=== PATIENT | female | born 1940 | race Caucasian/White ===

== ENCOUNTER → 2017-01-20 | Outpatient (CLI) | payer OTHER, BC ==
[~2017-01-20] MED LIST: CYAN10005 PO; DILT180C53 PO
--- NOTE | 2017-01-21 12:25 | MAMMOGRAPHY REPORT ---
BILATERAL DIGITAL SCREENING MAMMOGRAM WITH CAD: 01/20/2017 CLINICAL HISTORY: Routine screening. Patient has no complaints. TECHNIQUE: Bilateral CC and MLO views were obtained. Current study was also evaluated with a Comput er Aided Detection (CAD) system. COMPARISON: Comparison is made to exams dated: 01/15/2016 mammogram, 01/11/2014 mammogram, 01/12/2015 mammogram, 01/08/2013 mammogram, 12/28/2009 mammogram - [facility], and 12/19/2008. BREAST COMPOSITION: The tissue of both breasts is heterogeneously dense, which may obscure small ma sses. FINDINGS: The parenchymal pattern is unchanged. There are a few scattered stable benign appearing rim calcifications in the breasts. No developing mass, architectural distortion or cluster of suspi cious microcalcifications is seen. IMPRESSION: ACR BI-RADS CATEGORY 2: BENIGN There is no mammographic evidence of malignancy. A 1 year screening mammogram is recommended. The p atient will receive written notification of the results. Approximately 10% of breast cancers are not detected with mammography. A negative mammographic repor t should not delay biopsy if a clinically suggestive mass is present. Heather Reyna M.D. ay/:01/20/2017 15:32:50 Control Supervisor: Angella MARQUES(R)(M), [facility] letter sent: Normal 1/2 BI-RADS Code: ACR BI-RADS Category 2: Benign
== END | disposition home or self-care (01) ==
LOC: C.MAMM 07:24
PROVIDERS: ATTEND Family Medicine
DX: Z12.31 Encounter for screening mammogram for malignant neoplasm of breast (principal)

== ENCOUNTER → 2018-01-21 | Outpatient (CLI) | payer OTHER, BC ==
--- NOTE | 2018-01-21 15:56 | MAMMOGRAPHY REPORT ---
BILATERAL DIGITAL SCREENING MAMMOGRAM TOMOSYNTHESIS WITH CAD: 01/21/2018 CLINICAL HISTORY: Routine screening. Patient has no complaints. TECHNIQUE: Breast tomosynthesis in addition to standard 2D mammography was performed. Current study was also evaluated with a Computer Aided Detection (CAD) system. COMPARISON: Comparison is made to exams dated: 01/20/2017 mammogram, 01/15/2016 mammogram, 01/12/2015 m ammogram, and 01/11/2014 mammogram - [facility]. BREAST COMPOSITION: The tissue of both breasts is heterogeneously dense, which may obscure small mas ses. FINDINGS: There are stable asymmetries in each breast along the posterior nipple line on the cc view s, and scattered benign-appearing punctate microcalcifications. No new suspicious mass, architectural distortion or cluster of microcalcifications is seen. IMPRESSION: ACR BI-RADS CATEGORY 2: BENIGN There is no mammographic evidence of malignancy. A 1 year screening mammogram is recommended. The pa tient will receive written notification of the results. Approximately 10% of breast cancers are not detected with mammography. A negative mammographic report should not delay biopsy if a clinically suggestive mass is present. Heather Reyna M.D. ay/:01/21/2018 08:42:12 Newspaper Correspondent: Angella MARQUES(R)(M), [facility] letter sent: Normal 1/2 BI-RADS Code: ACR BI-RADS Category 2: Benign
== END | disposition home or self-care (01) ==
LOC: C.MAMM 08:01
PROVIDERS: ATTEND Family Medicine
DX: Z12.31 Encounter for screening mammogram for malignant neoplasm of breast (principal)

== ENCOUNTER 2018-03-29 14:19 | Emergency (ER) | payer BC, OTHER ==
[~2018-03-29] VITALS: Ht 160 cm; Wt 66.1 kg
[2018-03-29 14:29] VITALS: Ht 160 cm; Wt 66.1 kg
--- NOTE | 2018-03-29 14:55 | EMERGENCY ROOM VISIT NOTE ---
ED Visit Note First contact with patient: 14:41 I did evaluate and examine this patient myself. I did guide management for the patient. I agree with the PA's assessment as discussed. Please see the PAs dictation for further details. I did independently review the CT scan. The patient is neurologically intact. GCS is 15. Head CT did not show any acute abnormality. She was discharged with head injury precautions. She denies any other symptoms.
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
[2018-03-29 15:47] VITALS: BP 178/84; PULSE 90; TEMP 36.4; O2SAT 95
== END 2018-03-29 15:30 | disposition home or self-care (01) ==
LOC: C.EDB 14:20 → C.EDD 15:30
DX: S00.83XA Contusion of other part of head, initial encounter (principal); V87.7XXA Person injured in collision between other specified motor vehicles (traffic), initial encounter; D64.9 Anemia, unspecified; K21.9 Gastro-esophageal reflux disease without esophagitis; I10 Essential (primary) hypertension; Z79.899 Other long term (current) drug therapy

== ENCOUNTER → 2018-03-30 | Outpatient (CLI) | payer OTHER, BC | END | disposition home or self-care (01) | LOC: C.RDSM 12:53 | PROVIDERS: ATTEND Orthopaedic Surgery | DX: R52 Pain, unspecified (principal) ==

== ENCOUNTER 2022-11-12 05:03 | Observation (INO) ==
--- NOTE | 2022-10-16 15:41 | PAT Medication Instructions ---
Medication Instructions Date of Service October 16, 2022 Home Medications calcium-vitamin D3-vitamin K 500 mg-100 unit-40 mcg chewable tablet 1 tab PO QAM cyanocobalamin (vitamin B-12) 1,000 mcg tablet (Vitamin B-12) 1,000 mcg PO QAM diltiazem HCl 180 mg capsule,24 hr,extended release 180 mg PO QAM omeprazole magnesium 20 mg tablet,delayed release (Prilosec OTC) 20 mg PO DAILY PRN duloxetine 20 mg capsule,delayed release (Cymbalta) 20 mg PO QAM meloxicam 7.5 mg tablet 7.5 mg PO QAM ASK your surgeon for instructions meloxicam 7.5 mg tablet 7.5 mg PO QAM DO NOT take the morning of surgery calcium-vitamin D3-vitamin K 500 mg-100 unit-40 mcg chewable tablet 1 tab PO QAM cyanocobalamin (vitamin B-12) 1,000 mcg tablet (Vitamin B-12) 1,000 mcg PO QAM Take morning of surgery With a small sip of water, OTHERWISE NOTHING TO EAT OR DRINK AFTER MIDNIGHT: diltiazem HCl 180 mg capsule,24 hr,extended release 180 mg PO QAM omeprazole magnesium 20 mg tablet,delayed release (Prilosec OTC) 20 mg PO DAILY PRN(if needed) duloxetine 20 mg capsule,delayed release (Cymbalta) 20 mg PO QAM Other Notes If you have any questions please call us at [phone] or [phone] or [phone] or [phone]
--- NOTE | 2022-10-24 09:44 | Anesthesiology Consultation ---
Date of Service October 24, 2022 Assessment & Plan (1) Encounter for pre-operative examination: - PCP pre-op evaluation 10/28/22. PAT testing to be faxed to PCP office including abnormal CXR. Outpatient joint assessment: Patient is currently scheduled for inpatient pathway. If re-evaluated pending system levels during current pandemic/surgeon requests outpatient pathway, patient is not acceptable candidate for outpatient joint program from anesthesia standpoint. Chart Review Chart Review: Pending: Refer to Additional Notes / Consult section and Patient seen in Pre Admission Testing Teaching & Discussion Pre-Anesthesia Teaching/Discussion Notes: Instructed NPO after midnight before surgery, except medications with 15 cc of water. Medication instructions provided according to the PAT guidelines. History Surgery Operation Date: 11/12/22 07:00 Proposed Procedures p Right Total Knee Arthroplasty - Wan Tariq MD Height/Weight Height: 5 ft 3 in Weight: 63.8 kg Allergies Allergy/AdvReac Type Severity Reaction Status Date / Time Sulfa (Sulfonamide AdvReac Unknown Nausea Verified 10/16/22 14:33 Antibiotics) Medications Home Medications Medication Instructions Recorded Confirmed Last Taken calcium-vitamin D3-vitamin K 500 1 tab PO QAM 03/30/21 10/16/22 03/29/21 mg-100 unit-40 mcg chewable tablet cyanocobalamin (vitamin B-12) 1,000 mcg PO QAM 03/30/21 10/16/22 04/02/21 1,000 mcg tablet (Vitamin B-12) diltiazem HCl 180 mg capsule,24 180 mg PO QAM 03/30/21 10/16/22 04/02/21 hr,extended release omeprazole magnesium 20 mg 20 mg PO DAILY PRN gerd 03/30/21 10/16/22 Unknown tablet,delayed release (Prilosec OTC) duloxetine 20 mg capsule,delayed 20 mg PO QAM 10/16/22 10/16/22 Unknown release (Cymbalta) meloxicam 7.5 mg tablet 7.5 mg PO QAM 10/16/22 10/16/22 Unknown Past Medical History Medical History (Updated 10/24/22 @ 09:59 by Jahaira Stephens PA-C) Chronic back pain GERD (gastroesophageal reflux disease) controlled, stable per pt HTN (hypertension) controlled, stable per pt; white coat hypertension Patient denies h/o stroke, seizures, heart attack, heart failure, DM, blood clots or blood transfusions. Exercise / Class Metabolic Activity II 4-5 Yardwork/Stairs/Walk up hill (denies CP or SOB with 1 FOS) Past Family History Family History Other No family history of adverse response to anesthesia Past Surgical History Surgical History (Updated 10/24/22 @ 10:00 by Jahaira Stephens PA-C) H/O eye surgery R eye History of appendectomy History of cataract surgery History of colonoscopy History of tooth extraction History of tubal ligation Past Anesthesia History No Hx of Anesthesia Complications and No Family Hx of Anesthesia Complications History of PONV No Hx of PONV and No Hx of Motion Sickness Social History Smoking Status: Never smoker Do You Dip or Chew Tobacco: No Hx Alcohol Use: No Hx Substance Use: No substance use type: does not use Review of Systems Patient denies chest pain, shortness of breath, dyspnea on exertion, snoring, witnessed apneas, fever, chills, cough, wheezing, or palpitations. Physical Exam Vital Signs Vitals BP 162/94 P 70 TEMP 98.3 SP02 96% on RA RESP 18 Physical Full cervical extension range of motion without pain TMD 3.5 finger breadths Mallampati Score 2 Dentition: edentulous, full upper and lower dentures Lungs: normal respiratory effort. Clear throughout to auscultation, no adventitious breath sounds Cardiac: regular rate and rhythm, no murmurs noted Carotid arteries: negative bruit bilat Lab Results Anesthesia Preop Results Results Anesthesia Widget: WBC 6.32 K/ul (4.8-10.8) 10/24/22 Hgb 12.7 g/dl (12.0-16.0) 10/24/22 Hct 38.9 % (34.1-44.9) 10/24/22 Plt 232 K/uL (130-400) 10/24/22 Na 141 mmol/L (136-145) 10/24/22 K 4.2 mmol/L (3.5-5.1) 10/24/22 Cl 108 mmol/L (98-107) H 10/24/22 CO2 26 mmol/L (21-32) 10/24/22 BUN 19 mg/dl (6-23) 10/24/22 Creat 0.79 mg/dl (0.6-1.2) 10/24/22 Glucose Level 89 mg/dl (70-99(Fasting)) 10/24/22 PT 10.9 Seconds (9.0-12.0) 10/24/22 PTT 27.9 Seconds (21.0-31.0) 10/24/22 INR 1.0 (0.9-1.1) 10/24/22 Blood Type O Positive 10/24/22 Antibody Screen NEGATIVE 10/24/22 Testing Electrocardiogram Date: 10/24/22 NSR, rate 70 bpm Minimal voltage criteria for LVH, may be normal variant Nonspecific T wave abnormality Chest X-Ray Date: 10/24/22 Lung volumes are normal. Lungs are clear. There is no pneumothorax or pleural effusion. Cardiac size is normal. There is tortuosity and suspected dilatation of the descending thoracic aorta, measuring approximately 4.5 cm in caliber. There is no evidence for pulmonary edema. IMPRESSION: 1. No acute cardiopulmonary findings. 2. 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 COVID-19 Risk Screen Screening Information COVID-19 Screen Date: 10/24/22 Exposure 21 Days Family/Household +COVID Last 21 Days: No Exposure 10 Days Any COVID Exposure Last 10 Days: No Symptoms Last 10 Days Experienced COVID Sx Last 10 Days: No + COVID 0-90 Days COVID + in Last 0-90 Days: No
[2022-11-12] MEDS ORDERED: TRANEXAMIC ACID 1,000 MG **IV Intra-op IV SCH (06:00)
[2022-11-12] MEDS ORDERED: Scopolamine 1 MG TDSY TD SCH (06:00)
[2022-11-12] MEDS ORDERED: LR 60ML/HR IV SCH (06:00)
[2022-11-12] MEDS ORDERED: ACETAMINOPHEN 500 MG TAB PO SCH (06:00)
[2022-11-12] MEDS ORDERED: TRANEXAMIC ACID 1,000 MG **IV Pre-op IV SCH (06:00)
[2022-11-12] MEDS ORDERED: LR 500ML BOLUS, THEN 15ML/HR IV SCH (06:00)
[2022-11-12] MEDS ORDERED: CeleBREX 200 MG CAP PO SCH (06:00)
[2022-11-12] MEDS ORDERED: ceFAZolin 2000MG 2,000 MG/15 ML SYR IV SCH (06:00)
[2022-11-12] MEDS ORDERED: ROPIVACAINE 0.5% HCL/PF 150 MG, BUPIVACAINE 0.75% MPF 20 ML, EPINEPHrine 30MG/30ML (OR ... INSTIL SCH (06:00)
[2022-11-12] MEDS ORDERED: BUPIVACAINE 0.5 % 5 MG/1 ML PF 10ML VIAL ONE (06:32)
[2022-11-12] MEDS ORDERED: ROPIVACAINE 0.5% 5 MG/ML 30 ML VIAL ONE (06:32)
[2022-11-12] MEDS ORDERED: ATROPINE SULFATE 0.1 MG/ML 10ML SYR IV PRN (06:40)
[2022-11-12] MEDS ORDERED: ePHEDrine sulfate 50 MG/ML AMP IV PRN (06:40)
[2022-11-12] MEDS ORDERED: MIDAZOLAM HCL 1 MG/ML 2ML VIAL ONE (06:40)
[2022-11-12] MEDS ORDERED: ONDANSETRON INJ 2 MG/ML 2 ML VIAL IV PRN ×2 (06:40→12:13)
--- NOTE | 2022-11-12 06:40 | History & Physical Bridge Note ---
Date of Service November 12, 2022 History & Physical Bridge Note I have examined the patient, reviewed the History & Physical and in the interval since the performance of the History & Physical I have noted the following changes of clinical significance: no changes noted Patient is aware of the risks, is asymptomatic for COVID-19, testing is still pending.
[2022-11-12] MEDS ORDERED: LIDOCAINE 2% 2 ML VIAL/AMP(20MG/ML) INFIL ONE (06:41)
[2022-11-12] MEDS ORDERED: PROPOFOL IV EMULSION 10 MG/ML 20 ML VIAL IV ONE ×5 (06:41→07:24)
[2022-11-12] MEDS ORDERED: BUPIVACAINE 0.25% 30 ML VIAL ONE (06:58)
[2022-11-12] MEDS ORDERED: ONDANSETRON INJ 2 MG/ML 2 ML VIAL ONE (07:24)
--- NOTE | 2022-11-12 09:13 | Post Operative Brief Note ---
Immediate Post Op Note v1 Date of Surgery November 12, 2022 Pre & Post Diagnosis Operation Date: 11/12/22 07:00 Pre-Op Diagnosis: Right Knee Osteoarthritis Post-Op Diagnosis: Right Knee Osteoarthritis I identified the patient and participated in the time-out.: Yes Procedure Operation Date: 11/12/22 07:00 Actual Procedures p Right Total Knee Arthroplasty, Cemented(Right) - Wan Tariq MD Surgeon Wan Tariq MD Math Instructor Blanca Lane PA-C (No fellow avail) Estimated Blood Loss 75 Findings Consistent with Post-Op Diagnosis Fluids 1800 cc Specimens Right knee contents Anesthesia Type MAC Spinal Regional Complications none
--- NOTE | 2022-11-12 09:14 | Operative Report ---
Post Operative Report Pre & Post Diagnosis Operation Date: 11/12/22 07:00 Pre-Op Diagnosis: Right Knee Osteoarthritis Post-Op Diagnosis: Right Knee Osteoarthritis I identified the patient and participated in the time-out.: Yes Procedure Operation Date: 11/12/22 07:00 Actual Procedures p Right Total knee replacement, imageless computer assisted navigation - Wan Tariq MD Surgeon Wan Tariq MD Drop Clipper Blanca Lane PA-C (No fellow avail) Estimated Blood Loss 75 Findings See Below Examined Under Anesthesia: ROM -- There was 5 degrees to 90 degrees of flexion Ligamentous examination -- revealed stable Yudelka, posterior drawer, varus and valgus stress at 0 and 30 degrees. [place] Type IV changes of Tri-compartments. Fluids 1800 cc Specimens Right knee contents Anesthesia Type MAC Spinal Regional Complications none Indications This is a 82-year-old female who has clinical and radiographic findings consistent with osteoarthritis of the a right knee. I recommended that a right total knee replacement be performed. The patient understands the risks of surgery, which include but not limited to: bleeding, infection, re-operation, damage to nerves and arteries, continued knee pain, knee stiffness, DVT, and . The patient understands all of these instructions and explanations, all of his questions have been satisfactorily addressed and the patient has elected to proceed. Informed consent was signed. Description of Procedure IMPLANTS: 1. Femur: Triathlon #3 Right PS with distal pegs. 2. Tibia: Triathlon #3 [place]. 3. Insert: Triathlon #3 x 9 mm PS X3 poly. 4. Patella: Triathlon A29 x 9 mm X3 poly. 5. Palacos cement. Blanca Lane PA-C is assisting with positioning, retracting, and closure due to fellow not available. Procedure: The patient was taken to the Operating Room and placed in the supine position after spinal and adductor canal nerve block was administered. My initials and a multidisciplinary time-out were used to identify the right leg as the correct operative limb. A tourniquet was placed high in the thigh. Prior to the incision, 2 grams of intravenous Ancef were given. The right leg was then prepped and draped in a standard sterile fashion. An Esmarch was used to exsanguinate the leg and the tourniquet was inflated to 250 mmHg. The planned mid-line 20 cm incision was created exposing the extensor mechanism. The medial parapatellar arthrotomy was made and the patella was everted. The patella was addressed first. It was prepared by reaming from 20 mm down to 11 mm. An A29 button was found to fit best. The peg holes were made in the standard fashion. The femur was addressed next and using computer assisted OrthoAlign with 3 degrees of flexion and 0 degrees of valgus, removing 10 mm in the standard fashion for the distal cut.The cut was made and the 4-in-1 cutting block for a size 3 femur was placed. These cuts and the cuts to place the box were made in the standard fashion. The distal peg were created after testing knee stability with trial components in and using the trial femur as a guide in the standard fashion. Our attention was then drawn to the tibia cut with using imageless computer assisted OrthoAlign, taking 2 mm from the medial low side. A #3 Tibial baseplate fit well. A trial with a 9 mm spacer showed excellent stability in both flexion and extension, with good ligament balance, and thumbs free patellar tracking. Range of motion of 0-120 degrees. The tibial baseplate was prepped for the keel and stem. All components were removed.All surfaces were copiously irrigated prior to placement of the components. The femoral component followed by Tibial baseplate were cemented in place and the 9 mm X3 poly was placed. Next, the patellar button was placed using the same cement. Once the cement had cured, the range of motion and stability were unchanged. The tourniquet was deflated. Hemostasi s was obtained. 90 ml of total knee cocktail were injected into the soft tissues and periosteum. The extensor mechanism was closed with 1-0 Vicryl and 0 Stratafix with the knee bent approximately 60 degrees in a standard fashion. The peritenon and deep fascia was closed with 2-0 Vicryl. The subcutaneous layer was closed with 3-0 Vicryl. The skin was closed with Zipline and shield. The limb was cleaned and dried. 4x4 dressing was placed over top followed by ABDs, sterile Webril, and a foot to thigh Hollis bandage. The patient was then transferred to the Recovery Room in stable condition. The sponge and needle counts were correct. POST-OP INSTRUCTIONS: The patient will be WBAT. The patient will be admitted to the hospital. Labs will be obtained during the stay. DVT prophylaxis will included aspirin for 6 weeks, TEDs, and mechanical foot pumps. The dressing will be changed prior to their discharge or postop day #2 and covered with a Silverlon dressing, w hichever comes first as long as the incision as dry. I attest to the content of the Intraoperative Record and any orders documented therein. Any exceptions are noted below.
--- NOTE | 2022-11-12 09:24 | Operative Report ---
Post Operative Report Pre & Post Diagnosis Operation Date: 11/12/22 07:00 Pre-Op Diagnosis: Right Knee Osteoarthritis Post-Op Diagnosis: Right Knee Osteoarthritis I identified the patient and participated in the time-out.: Yes Procedure Operation Date: 11/12/22 07:00 Actual Procedures p Right Total Knee Arthroplasty, Cemented(Right) - Wan Tariq MD Surgeon Wan Tariq M.D. Ribbon Hand Blanca Lane PA-C (No fellow avail) Estimated Blood Loss 75 Findings Consistent with Post-Op Diagnosis DJD right knee Specimens bone and soft tissue Anesthesia Type MAC Spinal Regional Description of Procedure Patient was taken to the operating room, placed under IV sedation with spinal anesthesia and peripheral nerve block. Time out performed, prepped and draped in routine sterile fashion. I was present during the entire case and assisted with positioning, tissue retraction, trialing of implants, cementing of implants, closure and dressings. Please see Dr. Tariq's operative report for further details. Patient was awakened and taken to the recovery room in stable condition. I attest to the content of the Intraoperative Record and any orders documented therein. Any exceptions are noted below.
[2022-11-12] MEDS: fentaNYL citrate 100 MCG/2 ML VIAL IV PRN ×2 (11:07→11:29)
--- NOTE | 2022-11-12 11:22 | XRay Report ---
XR knee RT 1 or 2V routine CLINICAL HISTORY: Postoperative evaluation. COMPARISON: Knee radiographs November 08, 2021. FINDINGS: Alignment of the total right knee arthroplasty is anatomic. There is no periprosthetic fra cture or unexpected radiopaque foreign body. IMPRESSION: Expected findings following total right knee arthroplasty. ACT 112: Negative or not required by law. Electronically signed by: Wero Laird M.D. 11/12/2022 11:21 AM
[2022-11-12] MEDS ORDERED: NALOXONE HCL 0.4 MG/1 ML VIAL/CARP IV PRN (12:13)
[2022-11-12] MEDS ORDERED: bisacodyL 10 MG SUPP PR PRN (12:13)
[2022-11-12] MEDS ORDERED: MAGNESIUM HYDROXIDE SUSP 30 ML UDC PO PRN (12:13)
[2022-11-12] MEDS ORDERED: HYDROmorphone INJ 0.5 MG/0.5 ML SYR IV PRN (12:13)
[2022-11-12] MEDS ORDERED: HYDROmorphone INJ 1 MG/ML SYRINGE IV PRN (12:13)
[2022-11-12] MEDS ORDERED: PANTOprazole 40 MG TAB PO PRN (12:17)
[2022-11-12] MEDS: SODIUM CHLORIDE 0.9% 1000ML 1,000 ML IV SCH ×2 (13:51→23:23)
--- NOTE | 2022-11-12 14:12 | Hospitalist Consultation ---
Date of Consultation November 12, 2022 Assessment & Plan (1) Left knee injury: - s/p right TKA, POD #0, EBL 75 cc. - Pain/ABX/IVF/diet/drain management/transfusion needs/activity per primary team - Rescue Narcan ordered for over sedation PRN - VTE prophylaxis per primary service- SCDs in place - CBC and BMP in AM. 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 - Pre-op EKG with ST depressions V3-V6, echo 11/08/22: EF 75%, hyperdynamic LV, no wma, mild LVH, grade 1 diastolic dysfunction (2) HTN (hypertension): - Continue diltiazem. (3) Esophageal reflux: - Takes Prilosec prn, Protonix ordered prn. - No history of PUD, GI bleeds. (4) Sciatica: - Continue Cymbalta. Patient notes she has developed a tremor in b/l upper extremities since starting this. (5) Mild ascending aorta dilatation: Supervising Physician Co-Signing Physician Notes I personally saw and examined the patient. I verified all stewart points and agree with Melanie Siegel PA-C with the following exceptions and/or additions: 82-year-old female POD#0 right total knee replacement. Reports excessive eructation. Uses omeprazole relatively frequently at home but only prescribed PRN. O/E A&Ox3, HS1+2, no murmurs, Chest CTAB, Abdo SNT A/P s/p TKA - pain, VTE, bowel regimen per orthopedics GERD - will start routine pantoprazole while here HTN - Took diltiazem this morning. Continue tomorrow in AM with hold parameters. History of Present Illness Reason for Consultation: post-op medical management Requesting Physician: Wan Tariq MD Attending Physician: Wan Tariq MD History of Present Illness Odalys Frausto is an 82-year-old female with past medical history of hypertension, GERD, and depression who was admitted today, 11/12 for right TKA with Dr. Tariq after failing outpatient, conservative management. Hospitalist group was consulted for post-operative medication management. Today, she is POD#0 and feels well. Denies fever/chills, weakness, chest pain, palpitations, shortness of breath, cough, orthopnea, abdominal pain, nausea, vomiting. She is regaining sensation in his left leg, without any numbness or tingling. Sitting up in her chair, visiting with . No complaints. Allergies Allergy/AdvReac Type Severity Reaction Status Date / Time Sulfa (Sulfonamide AdvReac Intermediate Nausea Verified 11/12/22 05:33 Antibiotics) Home Medications Medication Instructions Recorded Confirmed Type calcium-vitamin D3-vitamin K 500 1 tab PO QAM 03/30/21 11/12/22 History mg-100 unit-40 mcg chewable tablet cyanocobalamin (vitamin B-12) 1,000 mcg PO QAM 03/30/21 11/12/22 History 1,000 mcg tablet (Vitamin B-12) omeprazole magnesium 20 mg 20 mg PO DAILY PRN gerd 03/30/21 11/12/22 History tablet,delayed release (Prilosec OTC) duloxetine 20 mg capsule,delayed 20 mg PO QAM 10/16/22 11/12/22 History release (Cymbalta) meloxicam 7.5 mg tablet 7.5 mg PO QAM 10/16/22 11/12/22 History diltiazem HCl 360 mg capsule,24 360 mg PO DAILY 11/13/22 11/13/22 History hr,extended release Patient History Medical History (Updated 11/13/22 @ 17:00 by Julio Avila MD) Chronic back pain HTN (hypertension) controlled, stable per pt; white coat hypertension Osteoarthritis of right knee Surgical History H/O eye surgery R eye History of appendectomy History of cataract surgery History of colonoscopy History of tooth extraction History of tubal ligation Family History Other No family history of adverse response to anesthesia Social History Smoking Status: Never smoker Second Hand Exposure: No; Do You Dip or Chew Tobacco: No; Tobacco Cessation Education Requested by Patient: No Hx Alcohol Use: No Hx Substance Use: No Preferred Language: British Communication Ability: Effective 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 Required: No Beliefs That Will Affect Care: None Current Living Situation: Spouse Other Information That Helps Us Care for You: No Feels Safe at Home: Yes Safety Concerns: Feels Safe At This Time Assistive Devices: Denture - Upper, Denture - Lower and Glasses Review of Systems Review of Systems: Constitutional: No fever/chills, weakness, fatigue, myalgias, anorexia, night sweats Eyes: No diplopia, no worsening or blurred vision ENT: normal hearing, no trouble swallowing Respiratory: No cough, sputum, dyspnea at rest or on exertion Cardiovascular: No chest pain, tightness or palpitations Abdomen: No pain, nausea, vomiting, diarrhea or constipation : Denies dysuria, hematuria, increased urgency/frequency, urinary retention Musculoskeletal: No joint pain, calf pain, swelling Neurologic: No weakness, numbness/tingling, or balance problems Psychiatric: No anxiety or depression Skin: No rash or itch Physical Exam Physical Exam: General: awake, alert, no apparent distress Head: Normocephalic, atraumatic ENT: PERRL, EOMI, no pharyngeal exudate, mucous membranes moist Chest: Clear to auscultation, on room air, no adventitious breath sounds Cardiac: Regular rate and rhythm, no murmur, no JVD, normal peripheral pulses, good capillary refill Abdominal: NABS x 4 quadrants, soft, nontender to palpation, no rebound, guarding or tenderness Extremities: Normal inspection, no peripheral edema or erythema, calfs nontender to palpation Psych: Normal mood and affect Neuro: AAO x 3, strength intact bilaterally and rated 5/5, no motor deficits, speech is clear, no peripheral sensory deficits Skin: no rash or erythema Results & Data Results & Data ([facility]) Vital Signs (Past 12 Hours) Vital Signs Temp Pulse Pulse Resp BP Pulse Ox O2 Del Method 11/12/22 13:20 36.8 C 78 16 154/67 H 95 Room Air 11/12/22 13:00 78 19 140/63 94 Room Air 11/12/22 12:00 66 20 140/65 94 Room Air 11/12/22 11:30 62 12 136/56 L 93 Room Air 11/12/22 11:00 56 L 21 127/65 98 Room Air 11/12/22 10:30 36.4 C L 50 L 11 L 129/55 L 98 Room Air 11/12/22 10:15 36.4 C L 51 L 13 123/57 L 97 Room Air 11/12/22 09:40 61 16 129/61 94 Room Air 11/12/22 10:00 36.4 C L 58 L 16 119/54 L 96 Room Air 11/12/22 09:50 36.4 C L 52 L 18 126/52 L 98 Room Air 11/12/22 09:30 65 19 112/56 L 100 Oxymask 11/12/22 09:24 36.3 C L 61 12 121/63 99 Oxymask 11/12/22 05:36 36.8 C 107 H 20 180/92 H 98 Room Air O2 Flow Rate 11/12/22 13:20 11/12/22 13:00 0 11/12/22 12:00 0 11/12/22 11:30 0 11/12/22 11:00 0 11/12/22 10:30 0 11/12/22 10:15 0 11/12/22 09:40 0 11/12/22 10:00 0 11/12/22 09:50 0 11/12/22 09:30 3 11/12/22 09:24 5 11/12/22 05:36 Diagnostic Findings Knee X-Ray 11/12/22 09:29 XR knee RT 1 or 2V routine CLINICAL HISTORY: Postoperative evaluation. COMPARISON: Knee radiographs November 08, 2021. FINDINGS: Alignment of the total right knee arthroplasty is anatomic. There is no periprosthetic fracture or unexpected radiopaque foreign body. IMPRESSION: Expected findings following total right knee arthroplasty. ACT 112: Negative or not required by law. Electronically signed by: Wero Laird M.D. 11/12/2022 11:21 AM PG Care Time/CCT Total # of Minutes Spent Total Time Spent with Patient: Total time spent is greater than 50% in coordination of care (as documented) at patient's floor/unit and/or counseling patient: Coding Level of Care Code 89267 Office/OBS Consult Lvl 3 Diagnoses Left knee injury S89.92XA HTN (hypertension) I10 Esophageal reflux K21.9 Sciatica M54.30 Mild ascending aorta dilatation I77.810
--- NOTE | 2022-11-12 14:23 | Anesthesiology Progress Note ---
Date of Service November 12, 2022 Anesthesia Post Procedure Vital Signs Vital Signs: Temp Pulse Pulse Resp BP Pulse Ox O2 Del Method 11/12/22 13:20 36.8 C 78 16 154/67 H 95 Room Air 11/12/22 13:00 78 19 140/63 94 Room Air 11/12/22 12:00 66 20 140/65 94 Room Air 11/12/22 11:30 62 12 136/56 L 93 Room Air 11/12/22 11:00 56 L 21 127/65 98 Room Air 11/12/22 10:30 36.4 C L 50 L 11 L 129/55 L 98 Room Air 11/12/22 10:15 36.4 C L 51 L 13 123/57 L 97 Room Air 11/12/22 09:40 61 16 129/61 94 Room Air 11/12/22 10:00 36.4 C L 58 L 16 119/54 L 96 Room Air 11/12/22 09:50 36.4 C L 52 L 18 126/52 L 98 Room Air 11/12/22 09:30 65 19 112/56 L 100 Oxymask 11/12/22 09:24 36.3 C L 61 12 121/63 99 Oxymask 11/12/22 05:36 36.8 C 107 H 20 180/92 H 98 Room Air O2 Flow Rate 11/12/22 13:20 11/12/22 13:00 0 11/12/22 12:00 0 11/12/22 11:30 0 11/12/22 11:00 0 11/12/22 10:30 0 11/12/22 10:15 0 11/12/22 09:40 0 11/12/22 10:00 0 11/12/22 09:50 0 11/12/22 09:30 3 11/12/22 09:24 5 11/12/22 05:36 Pain Intensity Right Knee: Pain Intensity: 4 Transfer of Care Handoff Completed per policy Notes Mental Status: alert / awake / arousable and participated in evaluation Patient Amnestic to Procedure: Yes Nausea / Vomiting: adequately controlled Pain: adequately controlled Airway Patency, RR, SpO2: stable & adequate BP & HR: stable & adequate Hydration State: stable & adequate Neuraxial Anesthesia: was administered and sensory block is resolving Anesthetic Complications: no major complications apparent and Pt Satisfied with anesthetic care
[2022-11-12] MEDS: ACETAMINOPHEN 500 MG TAB PO SCH ×2 (15:41→21:25)
[2022-11-12] MEDS: ceFAZolin 1000MG 1,000 MG/7.5 ML SYR IV SCH ×2 (17:07→22:54)
[2022-11-12] MEDS: ASCORBIC ACID 500 MG TAB PO SCH (17:08)
[2022-11-12] MEDS: FERROUS GLUCONATE 324 MG TAB PO SCH (17:08)
[2022-11-12] MEDS: Scopolamine CHECK PATCH PLACEMENT SCH (17:11)
--- NOTE | 2022-11-12 17:33 | Orthopedic Progress Note ---
Date of Service November 12, 2022 Assessment & Plan (1) Osteoarthritis of right knee: Plan: POD #0 s/p R TKA, doing as well as expected. Resume diet. WBAT with walker. OOB to chair. Continue pain control. Check labs tomorrow. DVT prophylaxis: TEDs 3 weeks, foot pumps while in hospital, ASA 81 mg BID for 6 weeks. PT/OT. D/C planning. Present on Admission?: Yes Admission and Anticipated Discharge Date Admission Date: November 12, 2022 Subjective Doing well. Thankful for her new knee. Physical Exam Physical Exam: RLE: BCR < 2 sec. Sensation to light touch intact distally. Wiggling ankle and toes. Calf soft and non-tender. Dressing is clean, dry, intact. Able to preform straight leg raise. Sitting comfortably in a chair. Results & Data ([facility]) Vital Signs (Past 12 Hours) Vital Signs Temp Pulse Pulse Resp BP Pulse Ox O2 Del Method 11/12/22 15:23 36.5 C 73 16 156/71 H 97 Room Air 11/12/22 13:20 36.8 C 78 16 154/67 H 95 Room Air 11/12/22 13:00 78 19 140/63 94 Room Air 11/12/22 12:00 66 20 140/65 94 Room Air 11/12/22 11:30 62 12 136/56 L 93 Room Air 11/12/22 11:00 56 L 21 127/65 98 Room Air 11/12/22 10:30 36.4 C L 50 L 11 L 129/55 L 98 Room Air 11/12/22 10:15 36.4 C L 51 L 13 123/57 L 97 Room Air 11/12/22 09:40 61 16 129/61 94 Room Air 11/12/22 10:00 36.4 C L 58 L 16 119/54 L 96 Room Air 11/12/22 09:50 36.4 C L 52 L 18 126/52 L 98 Room Air 11/12/22 09:30 65 19 112/56 L 100 Oxymask 11/12/22 09:24 36.3 C L 61 12 121/63 99 Oxymask 11/12/22 05:36 36.8 C 107 H 20 180/92 H 98 Room Air O2 Flow Rate 11/12/22 15:23 11/12/22 13:20 11/12/22 13:00 0 11/12/22 12:00 0 11/12/22 11:30 0 11/12/22 11:00 0 11/12/22 10:30 0 11/12/22 10:15 0 11/12/22 09:40 0 11/12/22 10:00 0 11/12/22 09:50 0 11/12/22 09:30 3 11/12/22 09:24 5 11/12/22 05:36 Laboratory Results Laboratory Results SARS-CoV-2, RNA, NAAT NEGATIVE (NEGATIVE) 11/12/22 Unknown Impressions Knee X-Ray 11/12/22 09:29 XR knee RT 1 or 2V routine CLINICAL HISTORY: Postoperative evaluation. COMPARISON: Knee radiographs November 08, 2021. FINDINGS: Alignment of the total right knee arthroplasty is anatomic. There is no periprosthetic fracture or unexpected radiopaque foreign body. IMPRESSION: Expected findings following total right knee arthroplasty. ACT 112: Negative or not required by law. Electronically signed by: Wero Laird M.D. 11/12/2022 11:21 AM
[2022-11-12] MEDS: SENNA 8.6 MG TAB PO SCH (20:40)
[2022-11-12] MEDS: PANTOprazole 40 MG TAB PO SCH (20:40)
[2022-11-12] MEDS: ASPIRIN 81 MG ECTAB PO SCH (20:40)
[2022-11-12] MEDS: CeleBREX 200 MG CAP PO SCH (20:41)
[2022-11-12] MEDS: DOCUSATE SODIUM 100 MG CAP PO SCH (20:44)
[2022-11-12] MEDS: oxyCODONE HCL IR 5 MG TAB (IMMEDIATE RELEASE) PO PRN ×2 (22:53→23:16)
[2022-11-13] MEDS: Scopolamine CHECK PATCH PLACEMENT SCH ×3 (00:14→16:38)
[2022-11-13] MEDS: ACETAMINOPHEN 500 MG TAB PO SCH ×3 (05:32→22:00)
[2022-11-13] MEDS: oxyCODONE HCL IR 5 MG TAB (IMMEDIATE RELEASE) PO PRN ×2 (05:40→15:44)
--- NOTE | 2022-11-13 07:54 | Orthopedic Progress Note ---
Date of Service November 13, 2022 Assessment & Plan (1) Osteoarthritis of right knee: Plan: POD #1 s/p R TKA, doing as well as expected. Resume diet. WBAT with walker. OOB to chair. Continue pain control. Possible d/c home later today. Check incision later today and possible placement Silverlon. DVT prophylaxis: TEDs 3 weeks, foot pumps while in hospital, ASA 81 mg BID for 6 weeks. PT/OT. D/C planning. Appreciate medicine input. Admission and Anticipated Discharge Date Admission Date: November 12, 2022 Subjective Doing well. eager to go home. Physical Exam Physical Exam: RLE: BCR < 2 sec. Sensation to light touch intact distally. Wig gling ankle and toes. Calf soft and non-tender. Dressing is clean, dry, intact. Able to preform straight leg raise. Sitting comfortably in a chair. Results & Data ([facility]) Vital Signs (Past 12 Hours) Vital Signs Temp Pulse Resp BP Pulse Ox O2 Del Method 11/13/22 07:13 36.4 C L 73 16 177/91 H 96 Room Air 11/13/22 06:19 76 200/84 H 11/13/22 05:37 193/94 H 11/13/22 03:21 36.5 C 74 18 191/79 H 97 Room Air 11/12/22 20:35 Room Air 11/12/22 23:18 36.6 C 67 18 173/65 H 96 Room Air 11/12/22 23:17 36.5 C 70 18 175/66 H 97 Room Air Laboratory Results Laboratory Results SARS-CoV-2, RNA, NAAT NEGATIVE (NEGATIVE) 11/12/22 Unknown Impressions Knee X-Ray 11/12/22 09:29 XR knee RT 1 or 2V routine CLINICAL HISTORY: Postoperative evaluation. COMPARISON: Knee radiographs November 08, 2021. FINDINGS: Alignment of the total right knee arthroplasty is anatomic. There is no periprosthetic fracture or unexpected radiopaque foreign body. IMPRESSION: Expected findings following total right knee arthroplasty. ACT 112: Negative or not required by law. Electronically signed by: Wero Laird M.D. 11/12/2022 11:21 AM
[2022-11-13] MEDS ORDERED: dexAMETHasone 4 MG TAB PO SCH (08:00)
[2022-11-13] MEDS: CeleBREX 200 MG CAP PO SCH ×2 (08:17→20:21)
[2022-11-13] MEDS: PANTOprazole 40 MG TAB PO SCH (08:17)
[2022-11-13] MEDS: ASPIRIN 81 MG ECTAB PO SCH ×2 (08:18→20:21)
[2022-11-13] MEDS: DULoxetine HCL 20 MG CAP PO SCH (08:18)
[2022-11-13] MEDS: CYANOCOBALAMIN (B-12) 500 MCG TABLET PO SCH (08:18)
[2022-11-13] MEDS: ASCORBIC ACID 500 MG TAB PO SCH ×2 (08:19→17:20)
[2022-11-13] MEDS: FERROUS GLUCONATE 324 MG TAB PO SCH ×2 (08:19→17:20)
[2022-11-13] MEDS: CALCIUM 600MG + VIT D 400 IU TAB PO SCH (08:19)
[2022-11-13] MEDS: DOCUSATE SODIUM 100 MG CAP PO SCH ×2 (08:20→20:20)
[2022-11-13 08:24] LABS: Hematocrit (blood only) 34.6 % (34.1-44.9); Hemoglobin 11.6 g/dl (12.0-16.0); Mean Corpuscular Hemoglobin 28.9 pg (25.0-34.0); Mean Corpuscular Hgb Conc 33.5 g/dL (32.0-36.0); Mean Corpuscular Volume 86.3 fL (80.0-100.0); Mean Platelet Volume 10.4 fL (9.4-12.3); Platelet Count 225 K/uL (130-400); Red Blood Count 4.01 M/uL (3.93-5.22); White Blood Count 11.99 K/ul (4.8-10.8)
[2022-11-13 08:41] LABS: BUN Creatinine Ratio 18.3 (10-20); Calcium 8.4 mg/dl (8.5-10.1); Creatinine Clr Calc Pharmacy 56.1 ml/min; Est GFR (African American) 91.9 ml/min; Est GFR (Non-African American) 79.3 ml/min; Potassium 3.4 mmol/L (3.5-5.1)
[2022-11-13] MEDS ORDERED: dilTIAZem HCL 180 MG CAPCR PO SCH (09:00)
[2022-11-13] MEDS ORDERED: dilTIAZem HCL 120 MG CAPCR PO STA (12:45)
--- NOTE | 2022-11-13 13:02 | XRay Report ---
XR chest 1V portable CLINICAL HISTORY: acute confusion TECHNIQUE: Single frontal radiograph of the chest was obtained. Comparison: Comparison is made to chest radiograph 10/24/2022 FINDINGS: No lines and tubes are seen. The aorta is tortuous. The remainder of the cardiomediastinal silhouette is unremarkable. The lungs are clear. No evidence of pleural effusion or pneumothorax. IMPRESSION: No acute abnormality. Redemonstration of tortuosity of the aorta. ACT 112: Negative or not required by law. Electronically signed by: Leobardo Fernández M.D. 11/13/2022 1:00 PM
--- NOTE | 2022-11-13 13:34 | CT Scan Report ---
CT head/brain wo con CLINICAL HISTORY: Acute confusion Technique: Contiguous axial CT images of the head were acquired from the base of the skull to the leonela sudeep without intravenous contrast administration. Images were viewed in brain, subdural and [facility] . Automated dose lowering techniques and/or adjustment according to patient size were utilized for this exam. Comparison: Comparison is made to CT head 03/29/2018 Findings: The ventricles, basal cisterns, and cerebral sulci are normal. There is no acute intracranial hemorrh age or evidence of acute territorial infarction. Neither mass effect, shift of the midline structures , nor abnormal extra-axial fluid collections are shown. Imaged portions of the paranasal sinuses and mastoid air cells are clear. The orbits appear normal. There are no acute fractures of the calvaria or scalp swelling. Scleral band is incidentally noted o n the right. Impression: No acute intracranial hemorrhage, no evidence of acute territorial infarction or other acute intracra nial disease process. ACT 112: Negative or not required by law. Electronically signed by: Leobardo Fernández M.D. 11/13/2022 1:32 PM
[2022-11-13] MEDS ORDERED: hydrALAZINE HCL 20 MG/ML VIAL IV PRN (15:03)
[2022-11-13 16:53] LABS: Appearance Urine Clear (Clear); Bilirubin Urine Negative (Negative); Blood Urine Negative (Negative); Color Urine Yellow; Glucose Urine UA Negative (Negative); Ketones Urine Negative (Negative); Leukocyte Esterase Urine Negative (Negative); Nitrite Urine Negative (Negative); Protein Urine Negative (Negative); Specific Gravity Urine 1.006 (1.000-1.030); Urobilinogen Urine Negative (Negative)
--- NOTE | 2022-11-13 16:59 | Hospitalist Progress Note ---
Date of Service November 13, 2022 Assessment & Plan (1) Status post right knee replacement: Plan: Pain, VTE and bowel management per orthopedics (2) Hypertensive encephalopathy: Plan: Acute confusion today most likely as a result of her accelerated hypertension. Unclear if she took her diltiazem prior to her operation like she said. Regardless it was recently increased to 360 mg and she incorrectly received her previously prescribed dose of 180 mg this morning. We will add an extra 120 mg dose on now with PRN hydralazine IV for sBP > 180. Work-up otherwise unremarkable with urinalysis negative. Chest x-ray no acute pathology. CT head with no intracranial abnormality. Labs unremarkable. Recommended continued admission due to this. (3) HTN (hypertension): Plan: As above for hypertensive encephalopathy (4) Esophageal reflux: Plan: - Continue pantoprazole 40mg PO daily while on NSAIDs - No history of PUD, GI bleeds. (5) Sciatica: Plan: - Continue Cymbalta. Patient notes she has developed a tremor in b/l upper extremities since starting this. (6) Mild ascending aorta dilatation: Admission and Anticipated Discharge Date Admission Date: November 12, 2022 Subjective Patient appears much more confused today. Talking accelerated, not making much sense. Not following commands well with physical therapy. No vision changes or one sided weakness. Review of Systems Review of Systems: All systems reviewed & are unremarkable except as noted in Subjective Physical Exam Constitutional: WD/WN, vitals as above Respiratory: normal respiratory effort, lungs clear to auscultation Cardiovascular: RRR, no murmur, no edema Gastrointestinal (Abdomen): normal bowel sounds, soft, nontender, no hepatosplenomegaly Musculoskeletal: no cyanosis or clubbing, extremities motor strength 5/5 Skin: no rashes, warm and dry Psychiatric: Orientation: alert and oriented to person; + not oriented to place and + not oriented to time Motor Behavior: + psychomotor agitation Speech: + pressured speech Hallucinations: no auditory hallucinations and no visual hallucinations Results & Data Results & Data ([facility]) Vital Signs (Past 12 Hours) Vital Signs Temp Pulse Resp BP BP Pulse Ox O2 Del Method 11/13/22 16:56 186/79 H 11/13/22 14:44 37.0 C 81 18 185/77 H 92 Room Air 11/13/22 12:32 36.7 C 82 18 191/87 H 95 Room Air 11/13/22 07:30 Room Air 11/13/22 07:13 36.4 C L 73 16 177/91 H 96 Room Air 11/13/22 06:19 76 200/84 H 11/13/22 05:37 193/94 H PG Care Time/CCT Total # of Minutes Spent Total Time Spent with Patient: Total time spent is greater than 50% in coordination of care (as documented) at patient's floor/unit and/or counseling patient: Coding Level of Care Code 01506 Subseq Obs Care Lvl 2 Diagnoses Status post right knee replacement Z96.651 Hypertensive encephalopathy I67.4 HTN (hypertension) I10 Esophageal reflux K21.9 Sciatica M54.30 Mild ascending aorta dilatation I77.810
[2022-11-13] MEDS: hydrALAZINE HCL 20 MG/ML VIAL IV PRN ×2 (19:57→21:37)
[2022-11-13] MEDS ORDERED: OLANZapine 10 MG/2.1 ML SDV IM SCH (20:00)
[2022-11-13] MEDS: SENNA 8.6 MG TAB PO SCH (20:21)
[2022-11-13] MEDS ORDERED: OLANZapine 10 MG/2.1 ML SDV IM PRN (20:22)
[2022-11-13] MEDS ORDERED: oxyCODONE HCL IR 5 MG TAB (IMMEDIATE RELEASE) PO PRN (20:25)
[2022-11-13] MEDS: OLANZAPINE 2.5 MG TAB PO PRN (22:01)
[2022-11-14] MEDS: ACETAMINOPHEN 500 MG TAB PO SCH ×2 (05:34→13:39)
[2022-11-14 06:34] LABS: Basophils # (auto) 0.01 K/uL (0-0.2); Basophils % (auto) 0.1 %; Hematocrit (blood only) 33.2 % (34.1-44.9); Hemoglobin 11.1 g/dl (12.0-16.0); Immature Granulocytes % (auto) 0.7 %; Lymphocytes # (auto) 0.85 K/uL (1.2-3.4); Lymphocytes % (auto) 5.9 %; Mean Corpuscular Hemoglobin 28.5 pg (25.0-34.0); Mean Corpuscular Hgb Conc 33.4 g/dL (32.0-36.0); Mean Corpuscular Volume 85.1 fL (80.0-100.0); Mean Platelet Volume 10.6 fL (9.4-12.3); Monocytes # (auto) 0.83 K/uL (0.24-0.82); Monocytes % (auto) 5.8 %; Neutrophils # (auto) 12.58 K/uL (1.4-6.5); Neutrophils % (auto) 87.5 %; Platelet Count 240 K/uL (130-400); RDW Coefficient of Variation 13.3 % (11.5-14.5); RDW Standard Deviation 41.5 fL (36.4-46.3); White Blood Count 14.37 K/ul (4.8-10.8)
[2022-11-14 06:58] LABS: Albumin Globulin Ratio 1.2 (0.9-2); Albumin Level 3.9 gm/dl (3.4-5.0); BUN Creatinine Ratio 31.2 (10-20); Bilirubin,Total 0.7 mg/dl (0.2-1.0); Calcium 8.9 mg/dl (8.5-10.1); Creatinine Clr Calc Pharmacy 51.7 ml/min; Est GFR (African American) 83.3 ml/min; Est GFR (Non-African American) 71.9 ml/min; Globulin 3.3 gm/dl (2.5-4.0); Potassium 3.6 mmol/L (3.5-5.1); Total Protein 7.2 gm/dl (6.0-8.3)
[2022-11-14] MEDS: OLANZAPINE 2.5 MG TAB PO PRN (07:52)
[2022-11-14] MEDS: CYANOCOBALAMIN (B-12) 500 MCG TABLET PO SCH (07:53)
[2022-11-14] MEDS: FERROUS GLUCONATE 324 MG TAB PO SCH (07:54)
[2022-11-14] MEDS: CeleBREX 200 MG CAP PO SCH (07:54)
[2022-11-14] MEDS: ASCORBIC ACID 500 MG TAB PO SCH (07:54)
[2022-11-14] MEDS: ASPIRIN 81 MG ECTAB PO SCH (07:54)
[2022-11-14] MEDS: PANTOprazole 40 MG TAB PO SCH (07:54)
[2022-11-14] MEDS: DOCUSATE SODIUM 100 MG CAP PO SCH (07:55)
[2022-11-14] MEDS: CALCIUM 600MG + VIT D 400 IU TAB PO SCH (07:55)
[2022-11-14] MEDS: DULoxetine HCL 20 MG CAP PO SCH (07:55)
--- NOTE | 2022-11-14 08:05 | Hospitalist Progress Note ---
Date of Service November 14, 2022 Assessment & Plan (1) Status post right knee replacement: Plan: Odalys Frausto is an 82-year-old female with past medical history of hypertension, GERD, and depression who was on 11/12 for right TKA with Dr. Tariq after failing outpatient, conservative management. Patient doing well today, medicine team will sign off at this point. Patient will be transferred to [facility] rehab today S/P Right Knee Replacement - Pain, VTE and bowel management per orthopedics Hypertensive Encephalopathy - Acute confusion yesterday most likely as a result of her accelerated hypertension. Unclear if she took her diltiazem prior to her operation like she said. - Work-up otherwise unremarkable with urinalysis negative. Chest x-ray no acute pathology. CT head with no intracranial abnormality. Labs unremarkable. - BP under better control today - Received Zyprexa overnight, but alert and oriented during encounter today HTN - Continue diltiazem, as above for hypertensive encephalopathy Esophageal Reflux - Continue pantoprazole 40mg PO daily while on NSAIDs - No history of PUD, GI bleeds. Sciatica - Continue Cymbalta. Patient notes she has developed a tremor in b/l upper extremities since starting this. (2) Hypertensive encephalopathy: (3) HTN (hypertension): (4) Esophageal reflux: (5) Sciatica: (6) Mild ascending aorta dilatation: Admission and Anticipated Discharge Date Admission Date: November 12, 2022 Supervising Physician Co-Signing Physician Notes I personally saw and examined the patient. I verified all stewart points and agree with Dr. Gunn, with the following exceptions and/or additions: 82-year-old female POD#1 right total knee replacement. Reports excessive eructation. Uses omeprazole relatively frequently at home but only prescribed PRN. O/E A&Ox3, HS1+2, no murmurs, Chest CTAB, Abdo SNT A/P s/p TKA - pain, VTE, bowel regimen per orthopedics HTN - continue diltiazem. Subjective Patient seen and examined at bedside. Patient alert and oriented. States her knee is not painful when she is resting in bed. Is eager to return home. Denies any shortness of breath, chest pain, abdominal pain, body aches/chills. Review of Systems Review of Systems: As per HPI Physical Exam Constitutional: WD/WN, vitals as above ENMT: external ear and nose normal, oropharynx normal Neck: trachea midline, no thyromegaly Respiratory: normal respiratory effort, lungs clear to auscultation Cardiovascular: RRR, no murmur, no edema Gastrointestinal (Abdomen): normal bowel sounds, soft, nontender, no hepatosplenomegaly Skin: no rashes, warm and dry Results & Data Results & Data ([facility]) Vital Signs (Past 12 Hours) Vital Signs Temp Pulse Resp BP Pulse Ox O2 Del Method 11/14/22 05:59 37.0 C 67 16 147/68 H 97 Room Air 11/14/22 02:28 36.4 C L 83 16 177/72 H 95 Room Air 11/14/22 01:20 149/79 H 11/13/22 23:43 Room Air 11/13/22 21:23 36.7 C 77 14 178/76 H 95 Room Air 11/13/22 20:57 89 201/83 H Resident Activity Tracking Resident Involvement: Resident Care Provided Care Provided: Adult Hospital Medicine
[2022-11-14] MEDS ORDERED: dilTIAZem HCL 300 MG CAPCR PO SCH (09:00)
[2022-11-14] MEDS ORDERED: dilTIAZem HCL 180 MG CAPCR PO SCH (09:00)
--- NOTE | 2022-11-14 09:37 | Orthopedic Progress Note ---
Date of Service November 14, 2022 Assessment & Plan (1) Status post right knee replacement: Plan: Patient was evaluated in her room. Cognitive ability is better than yesterday, but does not seem to be back to baseline yet. She was able to answer all questions appropriately for the nursing staff this morning. Blood pressure is improved. She will require hospitalist evaluation this morning before any decision is made about transfer to [facility]. Orthopedically, she is fine to go. I will check with the hospitalist team later this morning and obtain their opinion. Admission and Anticipated Discharge Date Admission Date: November 12, 2022 Subjective Patient seen in her room this morning. She states she has 0 pain. She has finished her breakfast. She was still like to go home. She is more lucid today than yesterday. She still has a very nervous giggle/laugh, and speaks rapidly. She is able to tell me about Any coming up and that she does not have any presents purchased. She remembers that her was present yesterday. Physical Exam Physical Exam: General: Well-developed, well-nourished, elderly white female, in no acute distress. Conversive. Rapid speech. Has a nervous giggle/laugh. Skin: Warm and dry with good turgor. Postsurgical dressings are still in place on the right leg. Musculoskeletal: Patient has intact motor function of her ankle and toes. She is able to perform straight leg raise with the right leg. Neurologic: Gross sensation is intact across the foot and toes of the right leg. Results & Data ([facility]) Vital Signs (Past 12 Hours) Vital Signs Temp Pulse Resp BP Pulse Ox O2 Del Method 11/14/22 05:59 37.0 C 67 16 147/68 H 97 Room Air 11/14/22 02:28 36.4 C L 83 16 177/72 H 95 Room Air 11/14/22 01:20 149/79 H 11/13/22 23:43 Room Air Laboratory Results White count today is 14.3. H&H are 11.1 and 33.2. Slightly decreased from yesterday. PRP is unremarkable.
--- NOTE | 2022-11-17 17:55 | Billing Data ---
Date of Service November 14, 2022 Coding Level of Care Code 73385 Subseq Hosp Care Lvl 2
--- NOTE | 2022-11-19 16:59 | Discharge Summary ---
Date of Service November 19, 2022 Admission Exam Per Admitting Provider Pt was seen and examined bedside. POD #2 s/p RTKA. Pt was admitted for observation and stayed an extra night for HTN encephalopathy. No major events over night. Vitals are stable. Labs unremarkable. X-rays show normal post operative changed. Pt reports they are doing well and pain is controlled. They are tolerating PO intake and voiding adequate amounts. PT/OT recommended rehab facility at [facility]. She was cleared by medicine POD2. Pt denies F/C, N/V/D, SOB, CP. Pt deemed medically stable and ready for discharge to [facility] for continued care. Principal Diagnosis right knee end stage osteoarthritis, right total knee replacement Discharge Exam General: Well-developed, well-nourished, elderly white female, in no acute distress. Conversive. Rapid speech. Has a nervous giggle/laugh. Skin: Warm and dry with good turgor. Postsurgical dressings are still in place on the right leg. Musculoskeletal: Patient has intact motor function of her ankle and toes. She is able to perform straight leg raise with the right leg. Neurologic: Gross sensation is intact across the foot and toes of the right leg. Discharge Data Allergies Allergy/AdvReac Type Severity Reaction Status Date / Time Sulfa (Sulfonamide AdvReac Intermediate Nausea Verified 11/12/22 05:33 Antibiotics) Consultations 11/11/22 13:11 Consult Hospitalist Routine 11/12/22 12:13 Consult Hospitalist Routine Procedures Performed Operation Date: 11/12/22 07:00 Actual Procedures p Right Total Knee Arthroplasty, Cemented(Right) - Wan Tariq MD Ordered Studies 11/12/22 05:00 US - OR guided needle placemen Routine 11/13/22 12:16 CT head/brain wo con Stat Hospital Course (1) Osteoarthritis of right knee: POD #2 s/p R TKA, doing as well as expected. Resume diet. WBAT with walker. OOB to chair. Continue pain control. Silverlon placed DVT prophylaxis: TEDs 3 weeks, foot pumps while in hospital, ASA 81 mg BID for 6 weeks. PT/OT. D/C planning to rehab Appreciate medicine input. Per Hospitalist: Hypertensive Encephalopathy - Acute confusion yesterday most likely as a result of her accelerated hypertension. Unclear if she took her diltiazem prior to her operation like she said. - Work-up otherwise unremarkable with urinalysis negative. Chest x-ray no acute pathology. CT head with no intracranial abnormality. Labs unremarkable. - BP under better control today - Received Zyprexa overnight, but alert and oriented during encounter today HTN - Continue diltiazem, as above for hypertensive encephalopathy Esophageal Reflux - Continue pantoprazole 40mg PO daily while on NSAIDs - No history of PUD, GI bleeds. Sciatica - Continue Cymbalta. Patient notes she has developed a tremor in b/l upper extremities since starting this. Total Time Total Time Spent Total Time Spent (In Minutes): 45 minutes Discharge Plan Discharge Items Patient Disposition: Transfer Inpatient Rehab Fac Reason For Visit: Right Knee Osteoarthritis Discharge Diagnosis: Right knee same as above Condition on Discharge: Good Activity: Per Instructions section Lifting: Wait until after follow-up appointment Bathing: Keep incision dry Bathing Comment: you may shower over the Silverlon dressings but do not submerge Exercise/Sports: Wait until after follow-up appointment Driving/Machine Use: No driving until cleared by Dr. Tariq Weightbearing: Full weightbearing Non-emergency contact: Surgeon Call non-emergency contact if: you have any medication questions, your pain is not controlled, your temperature is above 101, your wound has increased redness, your wound has increased drainage and your wound pain has increased Follow-up/Referrals: Zhanna Pino DO [Primary Care Provider] - 12/17/22 11:25 am Diet: Regular Addtl Attending Provider Instructions: ORTHOPEDIC DISCHARGE INSTRUCTIONS -Weight bearing as tolerated with walker to assist in ambulation -Home health/PT x 2 weeks. You will receive home exercises to do on your own for the first two weeks from home PT. Please do these exercises 3 times a day. -Frequently ice, at least 20 minutes 5 times a day. -Elevate operative leg above your heart with pillows/blankets underneath your ankle, never under your knee. This helps to keep the knee in extension and prevent a flexion contracture. -You may shower on Post op Day 3. Leave Silverlon dressing in tact until follow up appt in 2 weeks. Your dressing is water-resistant, meaning you can shower with it on as long as it is in-tact. Letting some running water run over top of it from the shower is okay. You cannot submerge your incision in water. No bath s, hot tubs or swimming pools. Keep dressing clean and dry. If your dressing starts to peel off or gets moisture under it after 7 days, home health nurse may reinforce as needed. -DVT prophylaxis: Aspirin 81mg twice a day for 6 weeks, LATASHA compression stockings for 3 weeks -While taking Aspirin, if you start to get upset stomach, we recommend taking over the counter Pepcid, 20mg twice a day as long as you are taking the Aspirin -Pain control: oxycodone 5mg every 4-6 hours as needed, Tylenol 500-1000mg every 8 hours -To promote healing, please take 500mg Vitamin C twice a day with meals x 2 we eks and Iron 325 mg twice a day with meals x 2 weeks -While on narcotic pain medication and iron supplement, we recommend you take a stool softener to prevent constipation -Follow up as scheduled in 2 weeks with [facility] for post op evaluation and Zip-line removal. Please call our office sooner @ [phone] if you have any questions or concerns Celebrex 200mg daily can also be added for pain control for up to 3 weeks if needed Pending Studies at Discharge: No Stand-Alone Forms: My [facility] Skilled Items Patient informed of condition?: Yes DNR: No Discharge Level of Care: Acute rehab Communicable Disease: No Discharge Prognosis: Stable Lines: None Urinary Catheter: No Medications and DC Order Prescriptions: Continued cyanocobalamin (vitamin B-12) [Vitamin B-12] 1,000 mcg Tablet 1,000 mcg PO QAM omeprazole magnesium [Prilosec OTC] 20 mg Tablet,Delayed Release (Dr/Ec) 20 mg PO DAILY PRN (Reason: gerd) calcium-vitamin D3-vitamin K 500-100-40 mg-unit-mcg Tablet,Chewable 1 tab PO QAM duloxetine [Cymbalta] 20 mg Capsule,Delayed Release(Dr/Ec) 20 mg PO QAM diltiazem HCl 360 mg capsule,extended release 24 hr 360 mg PO DAILY Discontinued meloxicam 7.5 mg Tablet 7.5 mg PO QAM Discharge Orders: Discharge Order (Routine); Ordered 11/14/22 Ordered By: Bryon Zamorano Admission Data Admit Date/Time: 11/12/22 09:29 Attending Provider: Wan Tariq Admit Provider: Wan Tariq Primary Care Provider: Zhanna Pino Other Providers: Julio Yuan ; Massimo Vigil ; [facility] ; Franki Iavn Other Interventions: Discharge Summary Assessment (RN) Last Done: 11/14/22 15:12
== END 2022-11-14 17:50 ==
LOC: ASU 05:03 → PACUINP 05:03 → 3E 13:19
DX: M54.30 Sciatica, unspecified side; Z79.899 Other long term (current) drug therapy; K21.9 Gastro-esophageal reflux disease without esophagitis; I77.819 Aortic ectasia, unspecified site; I10 Essential (primary) hypertension; Z20.822 Contact with and (suspected) exposure to COVID-19; Z88.2 Allergy status to sulfonamides; I67.4 Hypertensive encephalopathy; M17.11 Unilateral primary osteoarthritis, right knee